=== PATIENT | female | born 1945 | race Caucasian/White ===

== ENCOUNTER 2016-07-30 09:43 | Emergency (ER) | payer MEDICARE ==
[2016-07-30] MEDS ORDERED: TETANUS AND DIPHTHERIA TOX/PF 0.5 ML VIAL. VAX IM ONE (10:00)
--- NOTE | 2016-07-30 10:04 | PHYS DOC ---
General Chief Complaint: LACERATION/AVULSION Stated Complaint: FOREHEAD LAC Time Seen by MD: 09:49 Source: patient Exam Limitations: no limitations Problems: History of Present Illness Initial Comments Pt is 70/F to ED c/o head injury. Pt is visiting from [place], states she's staying with friend. This am she woke and was disoriented as she wasn't at home, says she rolled over and hit her head on nightstand. No JAIN/LOC/neck pain, pt states that she fell out of bed landing partially on flexed left patella. Has bruising, refuses evaluation states she is fine. No n/v/dizzy/photophobia/cognitive deficit, no new/progressive symptoms. Td unknown. Occurred: this morning Severity: moderate Location: frontal Method of Injury: direct blow, fell Loss of Consciousness: no loss of consciousness Associated Symptoms: other Allergies: Coded Allergies: Tetracyclines (Verified Allergy, Unknown, Rash, 07/30/16) Past Medical History Medical History: no medical history Surgical History: noncontributory Social History Smoker: non-smoker Alcohol: other ("every other day") Drugs: none Review of Systems Constitutional: denies chills, denies fever, denies malaise Eyes: denies blindness, denies blurred vision, denies photophobia Ears, Nose, Mouth, Throat: denies ear discharge, denies nose discharge, denies epistaxis Respiratory: denies cough, denies shortness of breath, denies wheezing Cardiovascular: denies chest pain, denies palpitations, denies syncope Gastrointestinal: denies diarrhea, denies nausea, denies vomiting Musculoskeletal: denies back pain, denies joint swelling, denies neck pain Skin: see HPI Psychiatric/Neurological: denies cognitive dysfunction, denies headache, denies numbness, denies tingling, denies unable to move lower ext, denies unable to move upper ext Physical Exam General Appearance: WD/WN, no apparent distress Head: lacerations (negative rojas/raccoon eyes, no ear/nose disch no fluid behind TMs b/l, no palpable bony deform) Eyes: bilateral eye EOMI, bilateral eye PERRL, bilateral eye normal inspection Ears, Nose, Throat, Mouth: hearing grossly normal, no evidence of ENT injury Neck: non-tender, full range of motion Cardiovascular/Respiratory: normal peripheral pulses, no respiratory distress Back: no CVA tenderness, no vertebral tenderness Extremities: non-tender, normal inspection Psychiatric: alert, oriented x 3 Cranial Nerves: normal hearing, normal speech, PERRL Motor/Sensory: no motor deficit, no sensory deficit, no pronator drift Skin: normal color, warm/dry (L knee mild bruising over patella no swelling, no bony TTP) Tommy Coma Score Best Eye Response: (4) open spontaneously Best Verbal Response: (5) oriented Best Motor Response: (6) obeys commands Tommy Total: 15 Laceration/Wound Repair Laceration/Wound Repair : Wound Location: face (right upper frontal) Wound's Depth, Shape: into muscle, linear, contused tissue Wound Length (cm): 2 Wound Explored: clean Irrigated w/ Saline (ccs): 50 Betadine Prep?: Yes Anesthesia: Lidocaine w/ Epi Volume Anesthetic (ccs): 6 Wound Debrided: minimal Wound Repaired With: sutures Suture Size/Type: 5:0, nylon Number of Sutures: 4 Layer Closure?: No Sterile Dressing Applied?: Yes Progress Informed consent. Sterile technique. 2% lido/epi analgesia, betadine/NS prep. Four 4-0 ethilon sutures with good wound edge approximation. Tolerated well no complications, see departure for wound care. Departure Time of Disposition: 11:24 Disposition: 01 HOME, SELF-CARE Diagnosis: facial laceration, head injury, fall Condition: IMPROVED Patient Instructions: Diphtheria Toxoid; Tetanus Toxoid Adsorbed, DT, Td, Facial Laceration, [id number], Head Injury, Adult, [id number], Sutured Wound Care, [id number] Additional Instructions: Rest, no strenuous activity. No exertion or exercise until cleared by your doctor. OTC tylenol as needed. No alcohol or ibuprofen until cleared by your doctor. Keep wound covered with sterile dressing until completely healed. Wash wound twice daily with soap and warm water, blot dry. Change dressing and apply OTC neosporin after each wash. Follow up with your doctor in 7 days for wound check and suture removal. Avoid sun exposure to reduce scarring. Return to ED with new or changing symptoms. LAW RDZ DO Jul 30, 2016 10:04
[2016-07-30] MEDS ORDERED: LIDOCAINE 2%/EPI 1:100,000 20 ML VIAL. IJ ONE (11:00)
[2016-07-30 11:35] VITALS: BP 160/109
== END 2016-07-30 11:35 | disposition home or self-care (01) ==
LOC: ER 09:43
DX: S01.81XA Laceration without foreign body of other part of head, initial encounter (principal); S80.02XA Contusion of left knee, initial encounter; W18.09XA Striking against other object with subsequent fall, initial encounter; Y93.89 Activity, other specified; Y92.89 Other specified places as the place of occurrence of the external cause; Y99.8 Other external cause status
CPT/HCPCS: 12011; 90471; 90714; 99283-25